=== PATIENT | female | born 2000 | race Caucasian/White ===

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

== ENCOUNTER 2021-09-26 15:08 | Inpatient (IN) ==
[2021-09-26] MEDS ORDERED: NS 0.9% 1000 ml BAG 1,000 ML IV ONE (15:20)
[2021-09-26 15:46] LABS: ABS Eosinophils 0.3 10^3/ul (0-0.6); ABS Lymphocytes 1.6 10^3/ul (1.0-4.8); ABS Monocytes 0.5 10^3/ul (0-0.8); ABS Neutrophils 6.8 10^3/ul (1.5-7.7); Eosinophil % 2.8 %; Hematocrit 39 % (35-47); Hemoglobin 13.5 g/dL (12.0-16.0); Lymphocyte % 17.8 %; Mean Corpuscular HGB Conc 34 g/dL (31-36); Mean Corpuscular Hemoglobin 31 pg (27-31); Mean Corpuscular Volume 90 fL (80-97); Mean Platelet Volume 7.3 fL (7.4-10.4); Platelet Count 344 10^3/uL (150-450); Red Blood Count 4.36 10^6 /uL (3.70-4.87); Red Cell Distribution Width 13 % (10-15); White Blood Count 9.2 10^3/uL (3.5-10.8)
[2021-09-26] MEDS ORDERED: Charcoal ACTIVATED 25 GM/120 ML BTL PO ONE (15:48)
[2021-09-26] MEDS ORDERED: Ondansetron 4 mg VIAL 2 MG/ML 2 ml VIAL IV ONE (16:11)
[2021-09-26 16:35] LABS: ALT 14 U/L (7-52); AST 17 U/L (13-39); Albumin 4.9 g/dL (3.2-5.2); Albumin/Globulin Ratio 1.5 (1-3); Alkaline Phosphatase 81 U/L (35-149); Anion Gap 10 mmol/L (2-11); Blood Urea Nitrogen 14 mg/dL (6-24); CO2 Carbon Dioxide 24 mmol/L (22-32); Calcium 10.5 mg/dL (8.6-10.3); Chloride 102 mmol/L (101-111); Globulin 3.2 g/dL (2-4); Glucose 110 mg/dL (70-100); Potassium 3.6 mmol/L (3.5-5.0); Sodium 136 mmol/L (135-145); Total Protein 8.1 g/dL (6.4-8.9); eGFR CKD-EPI 129.7 (>60)
[2021-09-26 16:37] LABS: Acetaminophen < 15 mcg/mL; Alcohol, S < 13 mg/dL (<13); Salicylate < 2.50 mg/dL (<30)
[2021-09-26 16:42] LABS: Urine Appearance Clear; Urine Bilirubin Negative (Negative); Urine Blood Negative (Negative); Urine Color Yellow; Urine Glucose Negative (Negative); Urine Ketones Negative (Negative); Urine Nitrite Negative (Negative); Urine Protein Negative (Negative); Urine Specific Gravity 1.012 (1.002-1.030); Urine Urobilinogen Negative (Negative)
[2021-09-26 17:03] LABS: Urine Benzodiazepine Screen None Detected (None Detect); Urine Cannabinoids Screen None Detected (None Detect); Urine Opiates Screen None Detected (None Detect)
[2021-09-26] MEDS ORDERED: Ondansetron ODT 4 mg TAB 4 MG TAB ONE (23:05)
[2021-09-27] MEDS ORDERED: Ondansetron ODT 4 mg TAB 4 MG TAB ONE (07:18)
[2021-09-27 07:47] LABS: Cholesterol 163 mg/dL; HDL Cholesterol 81.9 mg/dL; LDL Cholesterol 66 mg/dL; Triglycerides 76 mg/dL
[2021-09-27] MEDS: OLANzapine 5 mg TAB*ODT PO PRN (19:20)
[2021-09-28] MEDS ORDERED: OLANzapine 5 mg TAB*ODT ONE (11:20)
[2021-09-28 11:38] LABS: HCG Pregnancy < 0.60 mIU/mL
[2021-09-28] MEDS: OLANzapine 5 mg TAB*ODT PO PRN (23:59)
[2021-09-29] MEDS: OLANzapine 5 mg TAB*ODT PO PRN ×2 (08:46→22:30)
[2021-10-01] MEDS ORDERED: Ondansetron ODT 4 mg TAB 4 MG TAB PO PRN (12:11)
[2021-10-02 08:10] VITALS: BP 105/60
[2021-10-02] MEDS ORDERED: COVID-19 VACCINE, MRNA(MODERNA) BOOSTER/PF 50 MCG/0.25 ML IM ONE (10:10)
== END 2021-10-02 11:46 | disposition home or self-care (01) | DRG 755 ==
LOC: ED 15:08 → EDHOLD 19:36 → BSU 22:35
PROVIDERS: ADMIT Psychiatry & Neurology Psychiatry; ATTEND Psychiatry & Neurology Psychiatry

== ENCOUNTER 2021-10-19 19:34 | Inpatient (IN) ==
[2021-10-19] MEDS ORDERED: Ondansetron ODT 4 mg TAB 4 MG TAB PO ONE (20:36)
[2021-10-19 20:51] LABS: Urine Appearance Cloudy; Urine Bilirubin Negative (Negative); Urine Blood Negative (Negative); Urine Color Straw; Urine Glucose Negative (Negative); Urine Ketones Negative (Negative); Urine Nitrite Negative (Negative); Urine Protein Negative (Negative); Urine Specific Gravity 1.008 (1.002-1.030); Urine Urobilinogen Negative (Negative)
[2021-10-19 21:00] LABS: ABS Basophils 0.1 10^3/ul (0-0.2); ABS Eosinophils 0.4 10^3/ul (0-0.6); ABS Lymphocytes 2.7 10^3/ul (1.0-4.8); ABS Monocytes 0.6 10^3/ul (0-0.8); ABS Neutrophils 3.9 10^3/ul (1.5-7.7); Hematocrit 35 % (35-47); Hemoglobin 11.8 g/dL (12.0-16.0); Lymphocyte % 34.8 %; Mean Corpuscular HGB Conc 34 g/dL (31-36); Mean Corpuscular Hemoglobin 30 pg (27-31); Mean Corpuscular Volume 89 fL (80-97); Mean Platelet Volume 7.2 fL (7.4-10.4); Nucleated Red Blood Cells % 0.1; Platelet Count 312 10^3/uL (150-450); Red Blood Count 3.92 10^6 /uL (3.70-4.87); Red Cell Distribution Width 13 % (10-15); White Blood Count 7.6 10^3/uL (3.5-10.8)
[2021-10-19 21:24] LABS: ALT 11 U/L (7-52); AST 13 U/L (13-39); Albumin 4.1 g/dL (3.2-5.2); Albumin/Globulin Ratio 1.5 (1-3); Alkaline Phosphatase 80 U/L (35-149); Anion Gap 7 mmol/L (2-11); Blood Urea Nitrogen 10 mg/dL (6-24); CO2 Carbon Dioxide 25 mmol/L (22-32); Calcium 9.4 mg/dL (8.6-10.3); Chloride 103 mmol/L (101-111); Globulin 2.8 g/dL (2-4); Glucose 121 mg/dL (70-100); Potassium 3.9 mmol/L (3.5-5.0); Sodium 135 mmol/L (135-145); Total Protein 6.9 g/dL (6.4-8.9); eGFR CKD-EPI 128.7 (>60)
[2021-10-19 21:27] LABS: Urine Benzodiazepine Screen None Detected (None Detect); Urine Cannabinoids Screen None Detected (None Detect); Urine Opiates Screen None Detected (None Detect)
[2021-10-19 22:06] LABS: Acetaminophen < 15 mcg/mL; Alcohol, S < 13 mg/dL (<13); Salicylate < 2.50 mg/dL (<30)
[2021-10-19 22:20] LABS: TSH Ultra Thyroid Stim Horm 2.19 mcIU/mL (0.34-5.60)
[2021-10-21 16:46] LABS: HCG Pregnancy < 0.60 mIU/mL
[2021-10-22 07:36] LABS: HDL Cholesterol 77.4 mg/dL
[2021-10-23] MEDS: diPHENhydraMINE 25 mg TAB PO PRN ×2 (10:16→21:50)
[2021-10-24] MEDS: Al Hydrox/Mg Hydrox/Simet LIQ 30 ML UDC PO PRN (20:28)
[2021-10-24] MEDS: diPHENhydraMINE 25 mg TAB PO PRN (21:40)
[2021-10-25] MEDS: diPHENhydraMINE 25 mg TAB PO PRN (20:52)
[2021-10-26] MEDS: diPHENhydraMINE 25 mg TAB PO PRN (09:07)
[2021-10-27] MEDS: Al Hydrox/Mg Hydrox/Simet LIQ 30 ML UDC PO PRN (23:00)
[2021-10-28] MEDS: Al Hydrox/Mg Hydrox/Simet LIQ 30 ML UDC PO PRN ×2 (08:07→15:41)
[2021-10-28] MEDS ORDERED: RISPERIDONE 12.5 MG IM ONE ×2 (08:12→10:00)
[2021-10-28] MEDS: diPHENhydraMINE 25 mg TAB PO PRN (20:07)
[2021-10-29] MEDS: Al Hydrox/Mg Hydrox/Simet LIQ 30 ML UDC PO PRN (07:28)
[2021-10-30 07:52] VITALS: BP 101/64
[2021-10-30] MEDS ORDERED: RISPERIDONE 12.5 MG IM ONE (12:00)
== END 2021-10-30 14:30 | disposition home or self-care (01) | DRG 752 ==
LOC: ED 19:34 → BSU 10-20 13:43
PROVIDERS: ADMIT Psychiatry & Neurology Psychiatry; ATTEND Psychiatry & Neurology Psychiatry